=== PATIENT | female | born 1940 | race Caucasian/White ===

== ENCOUNTER 2017-10-30 17:42 | Emergency (ER) | payer OTHER, MEDICARE ==
[~2017-10-30 17:42] MED LIST: LISINOPRIL HCTZ1 TAB PO; MIRALAX17 GM PO; PERCOCET 325 MG1 TA2 PO; SYNTHROID0.025 MG PO; ZOCOR 10MG TAB10 MG PO
[2017-10-30 18:22] LABS: ABSOLUTE BASOPHIL COUNT 0 /CUMM (0.0-0.2); ABSOLUTE EOSINOPHIL COUNT 0 /CUMM (0.0-0.7); ABSOLUTE GRANULOCYTE CT 5.4 /CUMM (1.4-6.5); ABSOLUTE LYMPH COUNT 1.9 /CUMM (1.2-3.4); ABSOLUTE MONOCYTE COUNT 0.6 /CUMM (0.10-0.60); BASOPHIL % 0.2 % (0.0-2.0); EOSINOPHIL % 0.6 % (0-5); GRANULOCYTE % 67.9 % (42.2-75.2); HEMATOCRIT 38.5 % (37-47); MEAN CORPUSCULAR HGB 31.3 PG (27.0-31.0); MEAN CORPUSCULAR HGB CONC 34.3 G/DL (33.0-37.0); MEAN CORPUSCULAR VOLUME 91.3 FL (81.0-99.0); MEAN PLATELET VOLUME 10.9 FL (7.4-10.4); PLATELET COUNT 138 /CUMM (130-400); RBC DISTRIBUTION WIDTH 12.5 % (11.5-14.5); RED BLOOD CELL CT 4.21 /CUMM (4.20-5.40); WHITE BLOOD CELL COUNT 7.9 /CUMM (4.8-10.8)
--- NOTE | 2017-10-30 19:37 | ED GI/GU/ABDOMINAL COMPLAINT ---
History of Present Illness General Chief Complaint: Abdominal Pain/Flank Pain Stated Complaint: +D; ABD PAIN Source: patient, family Exam Limitations: no limitations Vital Signs & Intake/Output Vital Signs & Intake/Output Vital Signs Date Time Temp Pulse Resp B/P B/P Pulse O2 O2 Flow FiO2 Mean Ox Delivery Rate 10/31 2147 98.4 10/30 2124 73 20 170/86 98 Room Air 10/30 1956 97.6 88 16 174/86 98 Room Air 10/30 1924 Room Air 10/30 1749 96.9 83 20 177/83 98 Room Air Allergies Coded Allergies: NO KNOWN ALLERGIES (04/24/15) Reconcile Medications Cephalexin (Keflex) 500 MG CAPSULE 1 CAP PO Q6H CELLULITIS Levothyroxine (Synthroid) 0.025 MG TAB 1 TAB PO DAILY THYROID (Reported) LISINOPRIL/HYDROCHLOROTHIAZIDE (Lisinopril-Hctz 20-25 MG Tab) 1 TAB TAB 1 TAB PO DAILY HEART HEALTH (Reported) OXYCODONE HCL/ACETAMINOPHEN (Percocet 5-325 MG Tablet) 325 MG/5 MG TAB 2 TAB PO Q4 pain Polyethylene Glycol 3350 (Miralax) 17 GM PWD 17 GM PO DAILY NEEDED PRN Constipation (Reported) mix with water, juice, soda, coffee or tea Simvastatin (Zocor 10MG Tab) 10 MG TAB 1 TAB PO DAILY CHOLESTEROL (Reported) Triage Note: PT TO TRIAGE C/O DIARRHEA SINCE LAST NIGHT, AND PAIN UNDER BREASTS BILATERALLY ALL DAY. PT DENIES SOB/DIZZINESS. STATES POOR PO INTAKE TODAY. Triage Nurses Notes Reviewed? yes LMP (ages 10-50): post menopausal, unknown ? N Is pt currently ? No Onset: Abrupt Duration: day(s): (2), better, changing over time, continues in ED Timing: single episode today Quality/Severity: moderate, sharpness Severity Numbers: 6 Location: epigastric Radiation: no radiation Activities at Onset: none Prior Abdominal Problems: none Past Sexual History: Unobtainable at this time No Modifying Factors: none Modifying Factors: Worsens With: palpation, other (LAYING DOWN ). Associated Symptoms: abdominal pain, diarrhea HPI: 77-year-old female past medical history of hypertension, hyperlipidemia since her evaluation of diarrhea and abdominal pain. Patient is a symptoms started yesterday with multiple episodes of watery diarrhea. No blood no recent antibiotics recent travel or sick contacts. She states that today she woke up with epigastric left upper quadrant and right upper quadrant pain. She states that the pain is intermittent and worse. It is worse when she lays back worse when she eats but she is tolerating fluids. No melena or bright red blood per rectum. No nausea or vomiting but her appetite has been decreased. No fever or chest pain shortness of breath. No lower extremity edema or hemoptysis. She also reports an area of erythema to her left upper extremity. She does report getting a pneumococcal vaccine to the left deltoid however this is several inches below the injection site. No swelling or discharge. No fever no trauma to the area. (Shree Jones) Past History Travel History Traveled to [place] past 21 day No Medical History Any Pertinent Medical History? 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 No (Shree Jones) Review of Systems Review of Systems Constitutional: Reports: no symptoms. EENTM: Reports: no symptoms. Respiratory: Reports: no symptoms. Cardiovascular: Reports: no symptoms. GI: Reports: see HPI, abdominal pain, diarrhea. Genitourinary: Reports: no symptoms. Musculoskeletal: Reports: no symptoms. Skin: Reports: erythema. Neurological/Psychological: Reports: no symptoms. Hematologic/Endocrine: Reports: no symptoms. Immunologic/Allergic: Reports: no symptoms. All Other Systems: Reviewed and Negative (Shree Jones) Physical Exam Physical Exam General Appearance: well developed/nourished, no apparent distress, alert, awake Head: atraumatic, normal appearance Eyes: Bilateral: normal appearance, PERRL, EOMI. Ears, Nose, Throat, Mouth: hearing grossly normal, moist mucous membrane Neck: normal inspection, supple, full range of motion Respiratory: normal breath sounds, chest non-tender, no respiratory distress, lungs clear Cardiovascular: regular rate/rhythm, normal peripheral pulses Peripheral Pulses: 2+ radial (R), 2+ radial (L) Gastrointestinal: normal bowel sounds, soft, no organomegaly, tenderness ( EPIGASTRIC ) Back: normal inspection, normal range of motion, no vertebral tenderness Extremities: normal range of motion, THERE IS AN AREA OF ERYTHEMA OCCASIONALLY LEFT UPPER ARM. nO FOCAL FLUCTUANT AREAS OR DISCHARGE. nO INDURATION NO LYMPHATIC STREAKING Neurologic/Psych: no motor/sensory deficits, awake, alert, oriented x 3, normal gait Skin: intact, normal color, warm/dry Core Measures ACS in differential dx? Yes (RULED OUT ) Sepsis Present: No Sepsis Focused Exam Completed? No (Regino DRAKE,Shree) Progress Differential Diagnosis: AAA, appendicitis, biliary colic, bowel obstruction, cholecystitis, diverticulitis, gastritis, ischemic bowel, inflamm bowel dis, kidney stone, pancreatitis, peptic ulcer, PUD/GERD, SBO, UTI/pyelo, GASTROENTERITIS, ENTERITIS, GASTRITIS Plan of Care: Orders Procedure Date/time Status TROPONIN LEVEL 10/30 2099 Complete EKG 10/30 2099 Active URINALYSIS 10/30 1753 Complete TROPONIN LEVEL 10/30 175 Complete LIPASE 10/30 1753 Complete COMPREHENSIVE METABOLIC PANEL 10/30 1753 Complete CBC WITHOUT DIFFERENTIAL 10/30 1753 Complete EKG 10/30 174 Active Laboratory Tests 10/30/178: Troponin I < 0.01 10/30/171953: Urine Color YEL, Urine Clarity CLEAR, Urine pH 7.5, Ur Specific [place] <= 1.005 , Urine Protein NEG, Urine Ketones 15 H, Urine Nitrite NEG, Urine Bilirubin NEG , Urine Urobilinogen 0.2, Ur Leukocyte Esterase NEG, Ur Microscopic SEDIMENT EXAMINED, Urine RBC 5-10 H, Urine WBC 1-3 H, Ur Epithelial Cells RARE, Urine Bacteria FEW H, Urine Hemoglobin SMALL H, Urine Glucose NEG 10/30/17 1806: Anion Gap 12, Estimated GFR > 60, BUN/Creatinine Ratio 20.0, Glucose 101 H, Calcium 10.0, Total Bilirubin 1.3, AST 35, ALT 31, Alkaline Phosphatase 70, Troponin I < 0.01, Total Protein 7.6, Albumin 4.6, Globulin 3.0, Albumin/ Globulin Ratio 1.5, Lipase 70, CBC w Diff NO MAN DIFF REQ, RBC 4.21, MCV 91.3, MCH 31.3 H, MCHC 34.3, RDW 12.5, MPV 10.9 H, Gran % 67.9, Lymphocytes % 24.3, Monocytes % 7.0, Eosinophils % 0.6, Basophils % 0.2, Absolute Granulocytes 5.4, Absolute Lymphocytes 1.9, Absolute Monocytes 0.6, Absolute Eosinophils 0, Absolute Basophils 0 Patient seen and evaluated. She reported multiple episodes of watery diarrhea last night. The diarrhea went away today and she currently only has epigastric left upper quadrant and right upper quadrant pain. Pain is intermittent and it is worse when she lays back worse when she eats. She denies any chest pain or shortness of breath. No back pain no fever. She also has an area of cellulitis to left upper extremity. No signs of abscess 4 range motion left shoulder intact without pain. There is nontender. EKG and troponin are initially negative. A CT scan was ordered patient medicated with GI cocktail and Pepcid will reassess. Patient is feeling much better after medications. CT scan shows hepatic stEATOSIS without any other acute findings. All blood work is within normal limits. Reviewed all results of today's visit with patient. A repeat EKG troponin will be assessed. Repeat EKG troponin is negative patient remains feeling much better. Reevaluation of her abdomen shows it is soft and nontender. Advised to continue Zantac/Pepcid and [id number] Maalox. Avoid greasy fatty spicy foods. Avoid alcohol and caffeine. Facial be covered with cephalexin for the left upper chest when he cellulitis. She has no white count she is afebrile she is not a diabetic. Discussed return precautions in detail. Advised patient to follow up with her primary care doctor in 2 or 3 days for a recheck. Return sooner with any concerns. Case discussed with Dr. ROJO and he agrees. Diagnostic Imaging: Viewed by Me: CT Scan. Discussed w/RAD: CT Scan. Radiology Impression: PATIENT: KENNY JON PRESENT AGE: 77 PATIENT ACCOUNT NO: [id number] : 42 LOCATION: [facility] ORDERING PHYSICIAN: Shree DRAKE SERVICE DATE: 10/30/17 EXAM TYPE: CAT - CT ABD & PELVIS W IV CONTRAST EXAMINATION: CT ABDOMEN AND PELVIS WITH CONTRAST CLINICAL INFORMATION: Right upper quadrant, epigastric, and left upper quadrant pain. Diarrhea. COMPARISON: None TECHNIQUE: Multidetector volumetric imaging was performed of the abdomen and pelvis following IV administration of 95 mL of Optiray 320 intravenous contrast. Sagittal and coronal reformatted images were obtained on the technologist's workstation. DLP: 366 mGy-cm FINDINGS: LUNG BASES : The visualized lung bases are unremarkable. LIVER, GALLBLADDER, AND BILIARY TREE: The liver is diffusely hypoattenuating consistent with diffuse hepatic steatosis. There is a greater degree of focal fatty infiltration adjacent the anterior aspect of the fissure of the falciform ligament. Hepatic and portal veins enhance normally. The gallbladder is unremarkable with no evidence of radiopaque gallstones, gallbladder wall thickening, or obvious pericholecystic inflammatory changes. PANCREAS: Unremarkable. SPLEEN: Unremarkable. ADRENAL GLANDS: Unremarkable. KIDNEYS AND URETERS: The kidneys are normal in size, shape , and attenuation. No hydronephrosis, hydroureter, or calculi seen. No perinephric stranding. BLADDER: Unremarkable. GASTROINTESTINAL TRACT: Stomach is mildly distended. Small bowel is nondilated. There are some hyperdense contents within some distal small bowel loops in the pelvis, for example images 72-76. No evidence of bowel obstruction. Although the appendix is not seen, there are no right lower quadrant inflammatory changes to suggest appendicitis. There is scattered colonic diverticulosis without evidence of diverticulitis. ABDOMINAL WALL: No hernia. LYMPH NODES: Normal. VASCULAR: Moderate to severe nearly circumferential calcified atherosclerotic changes of the aorta are present. PELVIC VISCERA: The uterus and adnexa are unremarkable. OSSEOUS STRUCTURES: No acute or suspicious osseous abnormality. Degenerative disc disease and multilevel facet arthropathy. IMPRESSION: No acute CT findings to explain the patient's abdominal pain. Diffuse hepatic steatosis. DICTATED BY: José White MD DATE/TIME DICTATED:10/30/171927 STEAM FITTER SUPERVISOR:MARILYN DATE/TIME TRANSCRIBED:10/30/171927 CONFIDENTIAL, DO NOT COPY WITHOUT APPROPRIATE AUTHORIZATION. <Electronically signed in Other Vendor System> SIGNED BY: José White MD 10/30/171938 Initial ED EKG: normal sinus rhythm, LEFT ATRIAL ABN, QTC 486 (Shree Jones) Departure Departure Disposition: HOME OR SELF CARE Condition: Stable Clinical Impression Primary Impression: Epigastric pain Secondary Impressions: Cellulitis Qualifiers: Site of cellulitis: extremity Site of cellulitis of extremity: upper extremity Laterality: left Qualified Code: L03.114 - Cellulitis of left upper limb Referrals: Krystle NEGRON,MDino Andrews (PCP/Family) Additional Instructions: Rest, drink plenty of fluids. Eat bland foods like bananas rice applesauce OR toast. Tylenol for pain. Also use Pepcid/Zantac. Take antibiotics as directed for full course. Monitor symptoms closely. If it worsening pain spreading redness fever and concerns during immediately. Follow-up with YOUr primary care doctor this week for a recheck. Departure Forms: Customer Survey General Discharge Information Prescriptions: Current Visit Scripts Cephalexin (Keflex) 1 CAP PO Q6H #40 CAP (Shree Jones) PA/AFTER SCHOOL TEACHER Co-Sign Statement Statement: ED Attending supervision documentation- x I saw and evaluated the patient. I have also reviewed all the pertinent lab results and diagnostic results. I agree with the findings and the plan of care as documented in the PA's/AFTER SCHOOL TEACHER's documentation. [] I have reviewed the ED Record and agree with the PA's/AFTER SCHOOL TEACHER's documentation. [] Additions or exceptions (if any) to the PAs/AFTER SCHOOL TEACHER's note and plan are summarized below: [] (Dinora NEGRON,Price)
[2017-10-30 21:25] VITALS: BP 170/86
[2017-10-30] MEDS ORDERED: KEFLEX500 M1 PO (21:56)
== END 2017-10-30 22:19 ==
LOC: ERH 17:42
PROVIDERS: Physician Assistant Medical
DX: L03.114 Cellulitis of left upper limb (principal); R10.13 Epigastric pain
CPT/HCPCS: 74177; 81001; 93005; 93010